=== PATIENT | male | born 1990 | race Caucasian/White ===

== ENCOUNTER 2024-08-19 22:59 | Emergency (ER) | payer OTHER ==
[~2024-08-19] VITALS: Ht 172.7 cm; Wt 72.6 kg
[2024-08-20] MEDS ORDERED: PSEU120T83 PO (04:58)
[2024-08-20] MEDS ORDERED: FLUT16SP16 BNOSTRILS (04:58)
[2024-08-20] MEDS ORDERED: AMOX-430 PO (04:58)
[2024-08-20 06:52] VITALS: BP 142/70; TEMP 98.5; O2SAT 95
== END 2024-08-20 06:52 | disposition home or self-care (01) ==
LOC: ER 23:01
DX: S02.2XXA Fracture of nasal bones, initial encounter for closed fracture (principal); S01.511A Laceration without foreign body of lip, initial encounter; F10.129 Alcohol abuse with intoxication, unspecified; X58.XXXA Exposure to other specified factors, initial encounter; Y93.01 Activity, walking, marching and hiking; Y92.89 Other specified places as the place of occurrence of the external cause; Y99.8 Other external cause status
CPT/HCPCS: 70450-TC; 70486-TC; 82962-TC